=== PATIENT | female | born 1985 | race Caucasian/White ===

== ENCOUNTER 2020-09-02 03:17 | Inpatient (IN) ==
[2020-09-02] MEDS ORDERED: OXYTOCIN 30 UNITS/500 ML BAG IV PRN ×2 (04:22→09:48)
[2020-09-02] MEDS ORDERED: LACTATED RINGER'S 1,000 ML IV PRN (04:22)
--- NOTE | 2020-09-02 04:27 | History & Physical Report ---
Date of Service September 02, 2020 Assessment & Plan (1) Encounter for supervision of normal in multigravida, antepartum: Admit to L&D for labor. Requesting epidural. Labs, EFM/toco, IV, rapid COVID screen per unit policy. History of Present Illness Chief Complaint: labor Primary Care Provider: NO PCP 35yo @ 39 09/15, jesus every 5 minutes. Arrived at L&D painful and asking for epidural. + movement. Ctx Q 5, no rupture of membranes, no vaginal bleeding. complicated by transfer of care 26w. labs reviewed. Blood type A+. RPR, Hep B, HIV, GC/C negative. Rubella, varicella immune. pap negative. 3rd trimester glucola wnl. Normal anatomy ultrasound report. Allergies Allergy/AdvReac Type Severity Reaction Status Date / Time No Known Allergies Allergy Verified 09/02/20 03:45 Home Medications Medication Instructions Recorded Confirmed Type prenat.vits,jamilah,bib-vgcs-lkoav 1 tab PO DAILY 06/08/20 09/02/20 History Patient History Medical History Uterine size date discrepancy Social History Smoking Status: Never smoker Hx Alcohol Use: No Hx Substance Use: No Preferred Language: Turkmen Communication Ability: Effective Beliefs That Will Affect Care: None marital status: marital status details: Aleah [phone] Current Living Situation: Family Current Living Situation Comment: lives with spouse and son current occupational status: employed 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 No s/s chorio or abruption. Skin: no rashes, warm and dry Psychiatric: A+Ox3, euthymic affect Results & Data ([facility]) Vital Signs (Past 12 Hours) Vital Signs Temp Pulse Resp BP 09/02/20 03:37 79 123/85 09/02/20 03:32 36.5 C 18 Coding Level of Care Code None Diagnoses Encounter for supervision of normal in multigravida, antepartum Z34.80
[2020-09-02] MEDS ORDERED: BUPIVACAINE 0.25% 30 ML VIAL ONE (04:48)
[2020-09-02] MEDS ORDERED: SODIUM CHLORIDE 0.9% INJ 10 ML VIAL ONE (04:48)
[2020-09-02] MEDS ORDERED: ePHEDrine sulfate 50 MG/ML AMP ONE (04:48)
[2020-09-02] MEDS ORDERED: fentaNYL citrate 100 MCG/2 ML VIAL ONE (04:48)
[2020-09-02] MEDS ORDERED: fentaNYL 2MCG/ML ROPIVACAINE 1.25MG/ML 100 ML BAG EPI ONE (04:49)
[2020-09-02 04:51] LABS: Hematocrit (blood only) 35.8 % (37-47); Hemoglobin 12.3 g/dL (12.0-16.0); Mean Corpuscular Hemoglobin 30.4 pg (25-34); Mean Corpuscular Hgb Conc 34.4 g/dL (32-36); Mean Corpuscular Volume 88.6 fL (80-100); Mean Platelet Volume 11.5 fL (7.4-10.4); Platelet Count 276 K/uL (130-400); RDW Coefficient of Variation 13.2 % (11.5-14.5); RDW Standard Deviation 42.8 fL (36.4-46.3); Red Blood Count 4.04 M/uL (4.2-5.4); White Blood Count 9.16 K/uL (4.8-10.8)
--- NOTE | 2020-09-02 05:42 | Anesthesiology Consultation ---
Date of Service September 02, 2020 Assessment & Plan Chart Review Chart Review: Acceptable Risk for Labor Epidural Consults Requested none Proposed Anesthesia Risk / Benefits Reviewed With: PT / POA / Parent / Guardian, Accepts Plan and Informed Consent Obtained History Height/Weight Height: 5 ft 6 in Weight: 60.328 kg Allergies Allergy/AdvReac Type Severity Reaction Status Date / Time No Known Allergies Allergy Verified 09/02/20 03:45 Medications Home Medications Medication Instructions Recorded Confirmed Last Taken prenat.vits,jamilah,wfu-wqrj-wiqiz 1 tab PO DAILY 06/08/20 09/02/20 09/01/20 Active Medications Generic Name Dose Route Start Last Admin Trade Name Freq PRN Reason Stop Dose Admin Lactated Ringer's 1,000 mls @ 125 mls/hr 09/02/20 04:22 09/02/20 05:12 Lr IV 09/04/20 04:21 125 mls/hr .Q8H PRN Infusion L&D Protocol Protocol Past Medical History Medical History Uterine size date discrepancy Social History Smoking Status: Never smoker Hx Alcohol Use: No Hx Substance Use: No Physical Exam Vital Signs Last Vital Signs Temp 36.5 C 09/02/20 03:32 Pulse 71 09/02/20 05:39 Resp 18 09/02/20 03:32 BP 110/68 09/02/20 05:39 Pulse Ox 99 09/02/20 05:35 Testing Laboratory Results 09/02/20 04:39
[2020-09-02] MEDS ORDERED: diphenhydrAMINE 50 MG/ML VIAL IV PRN (05:44)
[2020-09-02] MEDS ORDERED: NALOXONE HCL 1 MG in SODIUM CHLORIDE 0.9% 1000ML 1,000 ML IV PRN (05:44)
[2020-09-02] MEDS ORDERED: ePHEDrine sulfate 50 MG/ML AMP IV PRN (05:44)
[2020-09-02] MEDS ORDERED: fentaNYL 2MCG/ML ROPIVACAINE 1.25MG/ML 100 ML BAG EPI PRN (05:44)
[2020-09-02] MEDS ORDERED: NALOXONE HCL 0.4 MG/1 ML VIAL/CARP IV PRN (05:44)
--- NOTE | 2020-09-02 07:38 | Delivery Summary ---
Vaginal Delivery Summary Date of Service September 02, 2020 Vaginal Delivery Summary Vaginal Delivery Summary: Pre-delivery diagnoses: 35yo @ 39 09/15, spontaneous labor Post-delivery diagnoses: same Procedure: spontaneous vaginal delivery Surgeon: Svetlana Donnelly DO Complications: none Findings: Viable female . Apgars: 8/8. Weight pending, please see nursery records. Estimated blood loss: 200ml Description of delivery: The patient progressed to complete with epidural anesthesia. She then began to push. She spontaneously vaginally delivered a viable from the cephalic presentation. The head delivered in BEV position. The anterior shoulder delivered, followed by the posterior shoulder, followed by the body. No nuchal cord. The baby was placed on mother's abdomen and a spontaneous cry was heard. Delayed cord clamping was employed, and the cord was doubly clamped and cut. Cord blood was obtained. The placenta was delivered spontaneously intact with a 3-vessel cord. The uterus and vagina were swept of clots and debris. IV pitocin was given. The uterus became firm. The cervix, vagina, and perineum were inspected and no lacerations were noted. Excellent hemostasis was observed. The mother and baby are recovering in stable and good condition in the room. Sponge and instrument counts were correct x 2. Svetlana Donnelly DO [facility] Vaginal Delivery Charge Vaginal Delivery Codes: 10259 global code for the antepartum, delivery, and post-
--- NOTE | 2020-09-02 09:29 | Anesthesia Procedure Note ---
Date of Service September 02, 2020 Anesthesia Post Epidural Note Vital Signs Vital Signs: Temp Pulse Resp BP Pulse Ox 36.5 C 81 18 135/65 99 09/02/20 03:32 09/02/20 08:33 09/02/20 07:54 09/02/20 08:33 09/02/20 07:30 Pain Intensity Bilateral Abdomen: Pain Intensity: 7 Notes Mental Status: alert / awake / arousable Nausea / Vomiting: adequately controlled Pain: adequately controlled Airway Patency, RR, SpO2: stable & adequate BP & HR: stable & adequate Hydration State: stable & adequate Neuraxial Anesthesia: was administered and sensory block is resolving Anesthetic Complications: no major complications apparent Epidural: Removed without complications and With tip intact
[2020-09-02] MEDS ORDERED: DIPHTHERIA/TETANUS/PERTUSSIS 0.5 ML SYR/VIAL IM ONE (09:48)
[2020-09-02] MEDS ORDERED: BENZOCAINE 20% AER SPR 82.5 GM CAN EXT PRN (09:48)
[2020-09-02] MEDS ORDERED: SUPERCREAM 0.870% 15 GM JAR EXT PRN (09:48)
[2020-09-02] MEDS ORDERED: ACETAMINOPHEN 325 MG TAB PO PRN (09:48)
[2020-09-02] MEDS ORDERED: oxyCODONE/ACETAMINOPHEN 5mg/325mg TAB PO PRN (09:48)
[2020-09-02] MEDS ORDERED: HYDROCORTISONE ACETATE 25 MG SUPP PR PRN (09:48)
[2020-09-02] MEDS ORDERED: bisacodyL 10 MG SUPP PR PRN (09:48)
[2020-09-02] MEDS: IBUPROFEN 600 MG TAB PO PRN ×2 (19:36→23:21)
[2020-09-02] MEDS: DOCUSATE SODIUM 100 MG CAP PO SCH (19:38)
[2020-09-03] MEDS: IBUPROFEN 600 MG TAB PO PRN ×5 (03:32→21:47)
--- NOTE | 2020-09-03 04:22 | Obstetrical Progress Note ---
Date of Service <Tristin Mora MD - Last Filed: 09/03/20 06:59> September 03, 2020 Assessment & Plan <Tristin Mora MD - Last Filed: 09/03/20 06:59> (1) state: 35 y/o s/p at 39w1d on 09/02/20, PPD1. A+. Rubella immune. Stable. - Doing well. Meeting milestons, + ambulation, voiding, BM, eating. Lochia small, improving. - - pain control is good - H/H pending - continue routine care - tentative dispo tomorrow Subjective <Tristin Mroa MD - Last Filed: 09/03/20 06:59> Ambulation: ambulating normally Voiding: no voiding problems Passing Gas:: Yes Diet Tolerance:: regular diet Lochia:: Small Feeding Type:: breast feeding Current Pain Level(1-10): 1 ok, milk letdown occasionally described as slow. Mild lower abdominal discomfort during uterine contractions. Prefers dispo tomorrow. Review of Systems Denies fever, chills, sweats Denies shortness of breath, chest pain, palpitations. + mild breast soreness Denies dysuria. Denies headache or changes in vision. Denies nausea/vomiting. Denies numbness, tingling, weakness. Physical Exam <Tristin Mora MD - Last Filed: 09/03/20 06:59> General: Alert, oriented. No acute distress. Cardiac: Regular rate and rhythm, no murmurs/rubs/gallops. Respiratory: Clear to auscultation bilaterally, no wheezes/rales/rhonchi. No respiratory distress. Abdomen: , soft, nontender. Uterus: Uterine fundus firm, palpable 1cm below umbilicus. Lower Extremities: No lower extremity edema or swelling. No deep calf pain. Zuleyma's negative bilaterally. Results & Data ([facility]) <Tristin Mora MD - Last Filed: 09/03/20 06:59> Vital Signs (Past 12 Hours) Vital Signs Temp Pulse Resp BP 09/02/20 23:20 36.6 C 79 18 105/71 09/02/20 20:05 36.5 C 80 18 112/77 Medications Administered <Saul Evans Jr, MD, FACOG - Last Filed: 09/03/20 07:38> Co-Signing Physician Notes Resident Physician Supervision Note: I was present with Dr. Mora during the history and exam. I discussed the case with the resident and agree with the findings and plan as documented in the note. Any exceptions or clarifications are listed here: Routine pp care, doing well. Documented By: Saul Evans Jr, MD, FACOG Resident Activity Tracking <Tristin Mora MD - Last Filed: 09/03/20 06:59> Resident Involvement: Resident Care Provided Care Provided: OB Delivery
[2020-09-03 06:52] LABS: Hematocrit (blood only) 32.8 % (37-47); Hemoglobin 11.3 g/dL (12.0-16.0)
[2020-09-03] MEDS: PRENATAL VITAMIN 1 TAB PO SCH (08:25)
[2020-09-03] MEDS: DOCUSATE SODIUM 100 MG CAP PO SCH ×2 (08:25→20:39)
[2020-09-03] MEDS ORDERED: bisacodyL 5 MG TABEC PO SCH (20:00)
[2020-09-04] MEDS: IBUPROFEN 600 MG TAB PO PRN ×3 (02:11→10:39)
--- NOTE | 2020-09-04 07:31 | Obstetrical Progress Note ---
Date of Service September 04, 2020 Assessment & Plan (1) state: Desires d/c home today. instructions reviewed, OK for D/C. Subjective Ambulation: ambulating normally Voiding: no voiding problems Passing Gas:: Yes Diet Tolerance:: regular diet Lochia:: Small Feeding Type:: breast feeding Physical Exam Constitutional WD/WN, vitals as above Eyes PERRL, conjunctivae normal, anicteric sclerae Neck normal visual inspection Respiratory normal respiratory effort and able to speak in complete sentences; no respiratory distress and no labored breathing Cardiovascular Rate/Rhythm: regular rate and regular rhythm Extremities: no edema Chest (Breasts) Chest: normal inspection of chest Gastrointestinal (Abdomen) Inspection/Auscultation: abdomen normal to inspection Soft, postgravid Psychiatric A+Ox3, euthymic affect Genitourinary OB Exam Abdomen: + fundal height Fundus: + firm and + relation to umbilicus (fundus just below umbilicus); not tender Results & Data ([place]) Vital Signs (Past 12 Hours) Vital Signs Temp Pulse Resp BP Pulse Ox 09/03/20 23:45 97.3 F L 88 18 117/70 97 09/03/20 19:31 97.5 F L 88 18 99/53 L
[2020-09-04] MEDS: DOCUSATE SODIUM 100 MG CAP PO SCH (08:22)
[2020-09-04] MEDS: PRENATAL VITAMIN 1 TAB PO SCH (08:22)
== END 2020-09-04 11:15 | disposition home or self-care (01) | DRG 807 ==
LOC: OPB 03:17 → 4S1 03:26 → 4S2 09:52